=== PATIENT | female | born 1935 | race Caucasian/White ===

== ENCOUNTER 2022-01-22 10:57 | Emergency (ER) | payer OTHER ==
[~2022-01-22] VITALS: Ht 149.9 cm; Wt 60.8 kg
[2022-01-22 10:58] VITALS: BP 150/77
--- NOTE | 2022-01-22 11:14 | NUR ---
86 y/o female biba from home, pt presents to ed with gen weakness for 2 weeks, pt states she got a call from her pcp today md mansfield, pt states she was told to come to er for a result of 10 for her platelet count. pt denies n/v/d, sob, cp, or bleeding from mouth or during bm. pmh: copd, lupus allergy: scented products
[2022-01-22 11:53] LABS: BASOPHILS # (AUTO) 0.1 K/uL (0.00-0.22); EOSINOPHILS # (AUTO) 0.3 K/uL (0-0.4); EOSINOPHILS % (AUTO) 3.1 % (0.0-4.0); HEMATOCRIT 42.9 % (36-48); LYMPHOCYTES # (AUTO) 1.9 K/uL (2.5-16.5); LYMPHOCYTES % (AUTO) 22.5 % (20.5-51.1); MEAN CORPUSCULAR HEMOGLOBIN 29 pg (27-31); MEAN CORPUSCULAR HGB CONC 33 g/dL (33-37); MEAN CORPUSCULAR VOLUME 89.7 fL (80-94); MONOCYTES # (AUTO) 0.7 K/uL (0.8-1.0); MONOCYTES % (AUTO) 8.4 % (1.7-9.3); NEUTROPHILS # (AUTO) 5.6 K/uL (1.8-7.7); PLATELET COUNT (AUTO) 266 K/uL (140-450); RED BLOOD CELL COUNT(AUTO) 4.78 MIL/uL (4.20-5.40); RED CELL DISTRIBUTION WIDTH 14.7 % (11.6-13.7); WHITE BLOOD COUNT (AUTO) 8.6 K/uL (4.8-10.8)
[2022-01-22 12:29] LABS: ALBUMIN 3.3 g/dL (3.4-5.0); ANION GAP 14.1 (8-16); ASPARTATE AMINOTRANSFERASE 17 U/L (15-37); CARBON DIOXIDE 25.5 mmol/L (21-32); CHLORIDE 109 mmol/L (98-107); GLUCOSE 106 mg/dL (74-106); POTASSIUM 4.6 mmol/L (3.5-5.1); SODIUM SERUM 144 mmol/L (136-145); TOTAL BILIRUBIN 0.2 mg/dL (0.0-1.0); UREA NITROGEN, BLOOD 20 mg/dL (7-18)
[2022-01-22] MEDS ORDERED: LIDO1ADH19 TP (14:20)
[2022-01-22] MEDS ORDERED: NAPR-1871 PO (14:21)
[2022-01-22 15:07] VITALS: BP 150/77
--- NOTE | 2022-01-22 15:07 | NUR ---
Patient discharged with v/s stable. Written and verbal after care instructions given and explained. Patient alert, oriented and verbalized understanding of instructions. Ambulatory with caregiver to car. All questions addressed prior to discharge. ID band removed. Patient advised to follow up with PMD. Rx of naproxen, lidocaine (sent) given. Patient educated on indication of medication including possible reaction and side effects. Opportunity to ask questions provided and answered.
== END 2022-01-22 15:07 | disposition home or self-care (01) ==
LOC: MED 10:57
DX: R53.1 Weakness (principal); I10 Essential (primary) hypertension; R53.83 Other fatigue; J44.9 Chronic obstructive pulmonary disease, unspecified; F17.290 Nicotine dependence, other tobacco product, uncomplicated; Z98.890 Other specified postprocedural states
CPT/HCPCS: 36415; 80053; 83010; 83615; 85025; 85384; 85610; 85730; 99283